=== PATIENT | female | born 1985 | race Two or more races ===

== ENCOUNTER 2025-05-21 05:19 | Day surgery (SDC) | payer OTHER ==
[2025-05-13 10:08] VITALS: BP 122/85
[2025-05-13 10:15] LABS: URINE APPEARANCE Clear; URINE BILIRRUBIN Negative (NEGATIVE); URINE BLOOD Negative; URINE COLOR Yellow; URINE GLUCOSE Negative (NEGATIVE); URINE KETONE Negative (NEGATIVE); URINE LEUKOCYTE Trace; URINE NITRATE Negative; URINE PROTEIN Negative (NEGATIVE); URINE UROBILINOGEN 0.2 E.U./dl
[2025-05-13 10:20] LABS: URINE BACTERIA 823.2 uL (0.0-1933); URINE EPITHELIAL CELLS 4.3 uL (0.0-38.8); URINE RBC 2.6 uL (0.0-20.8); URINE WBC 15.3 uL (0.0-23.2)
[2025-05-13 10:27] LABS: URINE CAST 0.00 uL (0.0-1.40)
[2025-05-13 10:33] LABS: BASO % 1.2 % (0.1-1.2); EOS # 0.14 (0.04-0.54); EOS % 2.9 % (0.7-7.0); LYMPH # 2.25 (1.18-3.74); LYMPH % 46.4 % (19.3-53.1); MEAN PLATELET VOLUME 10.00 fl (9.4-12.4); MONO # 0.51 (0.24-0.82); MONO % 10.5 % (4.7-12.5); NEUT # 1.88 (1.56-6.13); NEUT % 38.8 % (34.0-71.1); RED CELL DISTRIBUTION WIDTH 13.7 % (11.6-14.4)
[2025-05-13 10:49] LABS: INR 0.94
[2025-05-13 10:59] LABS: ALT/SGPT 18.0 U/L (12-78); AST/SGOT 11.0 U/L (15-37); BILIRUBIN TOTAL 0.31 mg/dL (0.3-1.2); BUN CREA RATIO 13.0 (7.0-25.0); CREATININE SERUM 0.78 mg/dL (0.55-1.02); GFR 81.39; GLOBULINA 3.7 G/DL (2.4-3.5); GLUCOSE FASTING 92.0 mg/dL (65-100); OSMOLALITY SERUM 274.0 MOSM/KG (275-295)
[~2025-05-21 05:19] MED LIST: BUPROPION XL300 MG PO; BUSPIRONE HCL15 MG PO; MAXIMUM D3325 MCG PO
[2025-05-21] MEDS ORDERED: POVIDONE-IODINE 118 ML BOTT TOP ONE (09:00)
[2025-05-21] MEDS ORDERED: CEFAZOLIN SODIUM 1,000 MG VIAL IV ONE (09:00)
[2025-05-21] MEDS ORDERED: IBU600 MG PO (09:54)
[2025-05-21] MEDS ORDERED: DOXYCYCLINE HY100 M2 PO (09:54)
== END 2025-05-21 15:00 | disposition home or self-care (01) ==
LOC: CIR.AMB 05:19
PROVIDERS: ATTEND Obstetrics & Gynecology
DX: D25.0 Submucous leiomyoma of uterus (principal); N84.0 Polyp of corpus uteri